=== PATIENT | female | born 1980 | race Caucasian/White ===

== ENCOUNTER 2021-03-16 00:31 | Emergency (ER) | payer OTHER ==
[~2021-03-16 00:31] MED LIST: BENADRYL 25MG C25 MG PO; CALCIUM500 M1 PO; PRENATAL VITAM1 EAC1 PO; ZANTAC150 MG PO
[2021-03-16 01:38] LABS: RED BLOOD COUNT 4.6 M/UL (4.00-5.10); WHITE BLOOD COUNT 13.2 K/UL (4.5-11.0)
[2021-03-16 01:53] LABS: BUN/CREATININE RATIO 16 (0-10)
== END 2021-03-16 04:17 | disposition home or self-care (01) ==
LOC: ER1 00:31
PROVIDERS: Emergency Medicine
DX: T78.40XA Allergy, unspecified, initial encounter (principal); R55 Syncope and collapse
CPT/HCPCS: 71045; 80048; 82550; 82553; 83735; 83874; 84484; 85025; 93005; 96374; 96375; 99285; J1200; J2405; J2930

== ENCOUNTER → 2021-05-24 | Outpatient (CLI) | payer OTHER | LOC: KOH-I 05-22 15:30 | DX: R05.9 Cough, unspecified (principal); R91.1 Solitary pulmonary nodule; R91.8 Other nonspecific abnormal finding of lung field; J84.10 Pulmonary fibrosis, unspecified | CPT/HCPCS: 71250 ==

== ENCOUNTER → 2021-06-22 | Outpatient (CLI) | payer OTHER | LOC: KOH-I 10:39 | DX: M25.562 Pain in left knee (principal); R22.42 Localized swelling, mass and lump, left lower limb | CPT/HCPCS: 73562 ==

== ENCOUNTER → 2021-06-22 | Outpatient (CLI) | payer OTHER | LOC: EXRD 15:30 | DX: M25.562 Pain in left knee (principal); M79.605 Pain in left leg; R22.42 Localized swelling, mass and lump, left lower limb | CPT/HCPCS: 93971 ==

== ENCOUNTER → 2021-11-17 | Outpatient (CLI) | payer OTHER ==
[~2021-11-17] MED LIST changes: +CIPRO500 MG PO; +ULTRAM50 MG PO
== END ==
LOC: KOH-I 12:59
DX: M54.50 Low back pain, unspecified (principal); R20.0 Anesthesia of skin; R11.0 Nausea; N20.0 Calculus of kidney
CPT/HCPCS: 74018

== ENCOUNTER 2021-11-20 12:53 | Emergency (ER) | payer OTHER ==
[~2021-11-20 12:53] MED LIST changes: -CIPRO500 MG PO; -ULTRAM50 MG PO
[2021-11-20 14:00] LABS: RED BLOOD COUNT 4.04 M/UL (4.00-5.10); WHITE BLOOD COUNT 7.3 K/UL (4.5-11.0)
[2021-11-20 14:37] LABS: BUN/CREATININE RATIO 10 (0-10)
[2021-11-20] MEDS ORDERED: CIPRO500 MG PO (15:15)
[2021-11-20] MEDS ORDERED: ULTRAM50 MG PO (15:15)
== END 2021-11-20 15:41 | disposition home or self-care (01) ==
LOC: ER1 12:53
PROVIDERS: Emergency Medicine
DX: S93.401A Sprain of unspecified ligament of right ankle, initial encounter (principal); N39.0 Urinary tract infection, site not specified; Z87.442 Personal history of urinary calculi; Z88.1 Allergy status to other antibiotic agents; W01.0XXA Fall on same level from slipping, tripping and stumbling without subsequent striking against object, initial encounter
CPT/HCPCS: 71045; 73100; 73600; 73620; 80053; 81001; 84484; 84703; 85025; 93005; 99284

== ENCOUNTER → 2021-12-01 | Outpatient (CLI) | payer OTHER ==
[~2021-12-01] MED LIST changes: +CIPRO500 MG PO; +ULTRAM50 MG PO
== END ==
LOC: KOH-I 09:30
DX: N20.0 Calculus of kidney (principal); M54.50 Low back pain, unspecified; R11.0 Nausea
CPT/HCPCS: 74176